=== PATIENT | male | born 1955 | race Caucasian/White ===

== ENCOUNTER 2017-07-12 02:32 | Emergency (ER) | payer SELFPAY ==
[~2017-07-12] VITALS: Ht 152.4 cm; Wt 74.8 kg
[2017-07-12 02:35] VITALS: BP 112/62
[2017-07-12] MEDS ORDERED: IBUPROFEN600 MG ORAL (02:56)
--- NOTE | 2017-07-12 02:56 | Emergency Room Report ---
History of Present Illness General Chief Complaint: Generalized Weakness Source: Patient Present Illness HPI Is a 62-year-old homeless male with history of "early diabetes.". He presents with chief complaint of right-sided pain status post fall. Onset was almost 24 hours ago. He said his crossing a street and tripped and able to grab onto a metal railing. He since then complaining of right-sided pain. No injury. Pain is 8 out of 10. Also complaining of generalize weakness. No nausea no vomiting. No fever chills. Denies any other complaint. Nothing made it better. Nothing made it worse. Allergies: Coded Allergies: No Known Allergies (Unverified , 07/12/17) Patient History Past Medical History: see triage record, old chart reviewed, DM Past Surgical History: none Pertinent Family History: none Social History: Reports: alcohol use Immunizations: other Reviewed Nursing Documentation: PMH: Agreed; PSxH: Agreed Nursing Documentation-PMH Past Medical History: No History, Except For Hx Diabetes: Yes Review of Systems Eye: Denies: eye pain, blurred vision ENT: Denies: ear pain, nose congestion, throat swelling Respiratory: Denies: cough, shortness of breath Cardiovascular: Denies: chest pain, palpitations Gastrointestinal: Denies: abdominal pain, diarrhea, nausea, vomiting Musculoskeletal: Reports: back pain, joint pain, muscle pain Skin: Denies: rash Neurological: Denies: headache, numbness Endocrine: Denies: increased thirst, increased urine Hematologic/Lymphatic: Denies: easy bruising All Other Systems: negative except mentioned in HPI Physical Exam Vital Signs Date Time Temp Pulse Resp B/P (MAP) Pulse Ox O2 Delivery O2 Flow Rate FiO2 07/12/17 02:28 81 16 112/62 96 Room Air vitals normal Sp02 EP Interpretation: reviewed, normal General Appearance: well appearing, no apparent distress, alert, other - dishelved. appeared to be intoxicated Head: normocephalic, atraumatic Eyes: bilateral eye PERRL, bilateral eye EOMI ENT: hearing grossly normal, normal pharynx Neck: full range of motion, supple, no meningismus Respiratory: chest non-tender, lungs clear, normal breath sounds Cardiovascular #1: regular rate, rhythm, no murmur Gastrointestinal: normal bowel sounds, non tender, no mass, no organomegaly, no bruit, non-distended Musculoskeletal: back normal, gait/station normal, normal range of motion, other - Patient was complaining of right-sided pain but as he was changing, I was palpating his side and he has no grimacing or any evidence of any pain. Neurologic: alert, oriented x3 Psychiatric: mood/affect normal Skin: warm/dry Medical Decision Making Diagnostic Impression: Primary Impression: Myalgia Additional Impression: Alcohol intoxication Qualified Codes: F10.920 - Alcohol use, unspecified with intoxication, uncomplicated ER Course Patient with fall and generalized Oddi pain. No evidence of any infection. Notice any fracture dislocation. I see no evidence of any trauma on him. Glucose level is normal. We'll discharge home. Last Vital Signs Date Time Temp Pulse Resp B/P (MAP) Pulse Ox O2 Delivery O2 Flow Rate FiO2 07/12/17 02:35 81 16 112/62 96 Room Air Status: improved Disposition: HOME, SELF-CARE Condition: Stable Scripts Ibuprofen* (MOTRIN*) 600 Mg Tablet 600 MG ORAL THREE TIMES A DAY, #30 TAB 0 Refills Prov: DOUG CARBAJAL M.D. 07/12/17 Referrals: NOT CHOSEN [facility]/,REFERRING (PCP) Patient Instructions: Weakness Additional Instructions: Follow-up your doctor in 7 days. Return if symptom worsen. DOUG CARBAJAL M.D. July 12, 2017 02:56
[2017-07-12 05:55] VITALS: BP 113/78
[2017-07-12 06:09] VITALS: BP 113/78
== END 2017-07-12 06:12 | disposition home or self-care (01) ==
LOC: EDBD 02:32 → EMR 02:49
DX: M79.1 Myalgia (principal); F10.920 Alcohol use, unspecified with intoxication, uncomplicated; E11.9 Type 2 diabetes mellitus without complications
CPT/HCPCS: 99282; 99283